=== PATIENT | male | born 1960 | race Caucasian/White ===

== ENCOUNTER 2024-02-25 11:14 | Outpatient (CLI) | payer BC, SELFPAY ==
--- NOTE | ~2024-02-25 | XR_ITS ---
XR abdomen/kub 1V 02/25/2024 11:37 Indication: Renal stones Procedure: KUB Comparison: No prior studies for comparison. Findings: There are bilateral renal stones. There are cholecystectomy clips. Bowel pattern nonobstruc tive. Moderate colonic fecal loading. There are bilateral hip arthroplasties. Mild lumbar spondylosis . Impression: 1: Bilateral nephrolithiasis. Reviewed, dictated and finalized at location L. Impression: 1: Bilateral nephrolithiasis.
== END 2024-02-25 11:15 | disposition home or self-care (01) ==
PROVIDERS: Visit Provider Urology
DX: N20.0 Calculus of kidney (principal)
CPT/HCPCS: 74018